=== PATIENT | female | born 1990 | race Caucasian/White ===

== ENCOUNTER 2023-05-23 15:36 | Emergency (ER) | payer BC ==
[~2023-05-23] VITALS: Ht 165.1 cm; Wt 102.2 kg
[2023-05-23 16:28] VITALS: BP 109/73; PULSE 71; RESP 20; TEMP 97.7; O2SAT 100
[2023-05-23] MEDS ORDERED: IBUPROFEN 600 MG TAB PO ONE (18:15)
[2023-05-23 18:39] LABS: BASOPHILS % (AUTO) 0.6 % (0.0-2.0); EOSINOPHILS # (AUTO) 0.1 K/uL (0-0.4); EOSINOPHILS % (AUTO) 1.9 % (0.0-4.0); HEMATOCRIT 36.3 % (36-48); LYMPHOCYTES # (AUTO) 1.8 K/uL (2.5-16.5); LYMPHOCYTES % (AUTO) 23.4 % (20.5-51.1); MEAN CORPUSCULAR HEMOGLOBIN 28 pg (27-31); MEAN CORPUSCULAR HGB CONC 33 g/dL (33-37); MEAN CORPUSCULAR VOLUME 84.7 fL (80-94); MONOCYTES # (AUTO) 0.5 K/uL (0.8-1.0); MONOCYTES % (AUTO) 6.2 % (1.7-9.3); NEUTROPHILS # (AUTO) 5.3 K/uL (1.8-7.7); NEUTROPHILS % (AUTO) 67.9 % (42.2-75.2); PLATELET COUNT (AUTO) 297 K/uL (140-450); RED BLOOD CELL COUNT(AUTO) 4.28 MIL/uL (4.20-5.40); RED CELL DISTRIBUTION WIDTH 13.7 % (11.6-13.7); WHITE BLOOD COUNT (AUTO) 7.9 K/uL (4.8-10.8)
[2023-05-23 19:01] LABS: ALANINE AMINOTRANSFERASE 30 U/L (12-78); ALBUMIN 3.6 g/dL (3.4-5.0); ALKALINE PHOSPHATASE 85 U/L (50-136); ANION GAP 12.3 (8-16); ASPARTATE AMINOTRANSFERASE 24 U/L (15-37); CALCIUM 8.4 mg/dL (8.5-10.1); CARBON DIOXIDE 26.6 mmol/L (21-32); CHLORIDE 103 mmol/L (98-107); CREATININE 0.7 mg/dL (0.6-1.3); GFR ARICAN-AMERICAN 126 mL/min (>90); GFR NON ARICAN-AMERICAN 104 mL/min (>90); GLUCOSE 94 mg/dL (74-106); POTASSIUM 3.9 mmol/L (3.5-5.1); SODIUM SERUM 138 mmol/L (136-145); THYROID STIMULATING HORMONE 1.37 uIU/mL (0.34-3.74); TOTAL BILIRUBIN 0.4 mg/dL (0.0-1.0); TOTAL PROTEIN, SERUM 7.3 g/dL (6.4-8.2); UREA NITROGEN, BLOOD 13 mg/dL (7-18)
[2023-05-23] MEDS ORDERED: IBUP-2213 PO (19:17)
[2023-05-23] MEDS ORDERED: IBUPROFEN 600 MG TAB ONE (20:03)
[2023-05-23 20:05] VITALS: BP 109/73; PULSE 71; RESP 20; TEMP 97.7; O2SAT 100
== END 2023-05-23 20:05 | disposition home or self-care (01) ==
LOC: MED 15:36
DX: M94.0 Chondrocostal junction syndrome [Tietze] (principal); R07.89 Other chest pain; Z79.899 Other long term (current) drug therapy
CPT/HCPCS: 36415; 71045; 80053; 84443; 84484; 85025; 93005; 99285

== ENCOUNTER 2024-07-22 20:11 | Emergency (ER) | payer BC ==
[~2024-07-22] VITALS: Ht 167.6 cm; Wt 101.3 kg
[~2024-07-22 20:11] MED LIST: IBUP-2213 PO
[2024-07-22 20:16] VITALS: BP 125/81; PULSE 101; RESP 18; TEMP 98.3; O2SAT 100
[2024-07-22 20:20] VITALS: BP 125/81; PULSE 101; RESP 18; TEMP 98.3; O2SAT 100
== END 2024-07-22 23:40 | disposition left against medical advice (07) ==
LOC: MED 20:11
DX: M79.672 Pain in left foot (principal); Z53.21 Procedure and treatment not carried out due to patient leaving prior to being seen by health care provider; W20.8XXA Other cause of strike by thrown, projected or falling object, initial encounter; Y93.89 Activity, other specified; Y92.89 Other specified places as the place of occurrence of the external cause; Y99.0 Civilian activity done for income or pay